=== PATIENT | female | born 1950 | race Caucasian/White ===

== ENCOUNTER → 2020-02-12 13:56 | Outpatient (CLI) | payer MEDICARE, OTHER, SELFPAY | PROVIDERS: Family Provider Family Medicine; PCP Family Medicine; Referring Provider Obstetrics & Gynecology; Visit Provider Obstetrics & Gynecology | DX: Z13.820 Encounter for screening for osteoporosis (principal); Z78.0 Asymptomatic menopausal state; E11.9 Type 2 diabetes mellitus without complications | CPT/HCPCS: 77080 ==

== ENCOUNTER → 2020-12-05 14:41 | Outpatient (CLI) | payer MEDICARE, OTHER, SELFPAY ==
[2020-12-05 17:34] LABS: BUN Creatinine Ratio 24.3 (6-22); Blood Urea Nitrogen 17 mg/dL (7-17); Calcium 10.4 mg/dL (8.4-10.2); Carbon Dioxide 26 mmol/L (22-32); Chloride 104 mmol/L (98-107); Estimated Glomerular Filt Rate > 60.0 mL/min (>60); Glucose 128 mg/dL (80-110); HEMOLYSIS < 15 (0-50); Potassium 4.7 mmol/L (3.4-5.1); Sodium 138 mmol/L (137-145)
== END ==
PROVIDERS: Family Provider Family Medicine; PCP Family Medicine; Referring Provider Internal Medicine Cardiovascular Disease; Visit Provider Internal Medicine Cardiovascular Disease
DX: Z01.812 Encounter for preprocedural laboratory examination (principal)
CPT/HCPCS: 36415; 80048

== ENCOUNTER → 2021-03-04 11:53 | Outpatient (CLI) | payer MEDICARE, OTHER, SELFPAY ==
[2021-03-04 20:34] LABS: NT-proBNP (BNP-Adult 18+) 34 pg/mL (<125)
== END ==
PROVIDERS: Family Provider Family Medicine; PCP Family Medicine; Referring Provider Internal Medicine Cardiovascular Disease; Visit Provider Internal Medicine Cardiovascular Disease
DX: R06.00 Dyspnea, unspecified (principal)
CPT/HCPCS: 83880

== ENCOUNTER → 2021-03-13 09:13 | Outpatient (CLI) | payer MEDICARE, OTHER, SELFPAY ==
--- NOTE | 2021-03-13 | DI.ECHO.S_ITS ---
[facility] +---------+ [facility] +---------+ : : [address] : [place] : : : : [id number] : : : : Phone: [phone] Echocardiogram Report + + :Name: NIKUNJ SKY Study Date: 03/13/2021 Height: 62 in : :[facility] ReadingLocation: Weight: 150 lb : : Gender: Female BSA: 1.7 m2 : :: 1950 Age: 70 yrs BP: 148/85 mmHg: :Reason For Study: DYSPNEA : :Ordering Physician: MALINDA BAEZPerformed By: Mary Alice Wagner : :Referring: MALINDA BAEZ : + + Interpretation Summary The ejection fraction is estimated to be 65-70%. Diastolic parameters suggest probable normal left ventricular diastolic function and normal filling pressures. The right ventricle is normal in size and function. No significant valvular abnormalities. Normal PASP. Procedure: A two-dimensional transthoracic echocardiogram with color flow and Doppler was performed. The study quality was technically adequate. There is no prior echocardiogram noted for this patient. The patient was in sinus bradycardia with heart rates between 56-62 bpm during the exam. Left Ventricle: The left ventricle is normal in size and wall thickness. The ejection fraction is estimated to be 65-70%. Diastolic parameters suggest probable normal left ventricular diastolic function and normal filling pressures. Right Ventricle: The right ventricle is normal in size and function. Atria: Both atria are normal in size. There is no Doppler evidence for an interatrial shunt. Mitral Valve: The mitral valve leaflets appear borderline thickened, but open well. There is mild mitral annular calcification. There is no mitral regurgitation noted. Aortic Valve: The aortic valve opens well. There is no aortic valve stenosis. No aortic regurgitation is present. Tricuspid Valve: The tricuspid valve is normal in structure and function. There is trace tricuspid regurgitation. The right ventricular systolic pressure is estimated to be at least 26 mmHg based on an estimated right atrial pressure of 3 mm Hg. Pulmonic Valve: The pulmonic valve is not well visualized. There is no pulmonic valvular regurgitation. Great Vessels: The aortic root is normal size. The ascending aorta could not be visualized. The IVC is of normal diameter and collapses greater than 50% with a sniff. This suggests a low right atrial pressure of 3 mm Hg. Pericardium/ Pleura There is no pericardial effusion. There is no pleural effusion. MMode/2D Measurements & Calculations LVIDd: 4.5 cm LVOT diam: 2.1 cm LVIDs: 2.8 cm Ao root diam: 2.9 cm FS: 37.5 % Ao Arch Diam (Prox Trans): 2.6 cm IVSd: 0.81 cm LVPWd: 0.80 cm LV shearer. diameter/BSA (cm/m^2): 2.6 LV sys. diameter/BSA (cm/m^2): 1.7 LA A2 area: 17.5 cm2 RA long axis: 4.3 cm LA A4 area: 14.3 cm2 RA area: 12.3 cm2 LA length (vol): 4.7 cm RA vol: 29.8 ml LA vol: 45.5 ml RA : 17.6 ml/m2 LA vol index: 26.9 ml/m2 IVC diam: 1.3 cm RVD1 (basal): 3.0 cm TAPSE: 2.0 cm Doppler Measurements & Calculations Ao V2 max: 166.1 cm/sec LVOT Max Sheng: 101.7 cm/sec Ao V2 mean: 99.5 cm/sec LV V1 max P.1 mmHg Ao max P.0 mmHg LV V1 VTI: 24.2 cm Ao mean P.8 mmHg YANNICK(I,D): 2.5 cm2 Ao V2 VTI: 34.1 cm YANNICK(V,D): 2.1 cm2 sev ratio: 0.71 YANNICK indexed to BSA (cm^2/m^2): 1.5 MV E max sheng: 65.9 cm/sec TR max sheng: 238.6 cm/sec MV A max sheng: 65.4 cm/sec TR max P.8 mmHg MV E/A: 1.0 PA V2 max: 85.4 cm/sec Med Peak E' Sheng: 7.6 cm/sec PA V2 mean: 60.1 cm/sec E/E' med: 8.6 PA mean P.6 mmHg Lat Peak E' Sheng: 9.8 cm/sec PA pr(Accel): 36.2 mmHg E/E' lat: 6.7 E/e' average: 7.7 MV dec time: 0.35 sec SV(LVOT): 83.6 ml Reading Physician:10:56 AM
== END ==
PROVIDERS: Family Provider Family Medicine; PCP Family Medicine; Referring Provider Internal Medicine Cardiovascular Disease; Visit Provider Internal Medicine Cardiovascular Disease
DX: R06.00 Dyspnea, unspecified (principal)
CPT/HCPCS: 93306

== ENCOUNTER → 2021-04-01 08:46 | Outpatient (CLI) | payer MEDICARE, OTHER, SELFPAY ==
[2021-04-01 19:38] LABS: Add Manual Diff / Slide Review NO; Basophils Absolute Auto 100 /uL (0-100); Eosinophils Absolute Auto 200 /uL (0-450); Eosinophils Percent Auto 3.1 % (2-4); Hematocrit 41.8 % (36-46); Hemoglobin 14.1 g/dL (12.0-16.0); Lymphocytes Absolute Auto 1800 /uL (1100-4500); Lymphocytes Percent Auto 28.2 % (25-40); Mean Corpuscular HGB Conc 33.7 % (30-36); Mean Corpuscular Hemoglobin 30.7 PG (26-34); Mean Corpuscular Volume 91.1 fL (80-100); Monocytes Absolute Auto 600 /uL (0-900); Monocytes Percent Auto 9.5 % (3-14); Neutrophils Absolute Auto 3800 /uL (1500-7000); Neutrophils Percent Auto 58.2 % (50-75); Platelet Count 230 X10^3/uL (150-400); Red Blood Cell Count 4.59 X10^6/uL (4.0-5.2); Red Cell Distribution Width 12.2 % (11.6-14.8); White Blood Cell Count 6.5 X10^3/uL (4.5-11.0)
[2021-04-01 19:57] LABS: Hemoglobin A1C% w Est Avg Glu 6.3 % (4.0-6.0)
[2021-04-01 20:05] LABS: Alanine Aminotransferase 19 IU/L (<35); Albumin 4.5 g/dL (3.5-5.0); Albumin Globulin Ratio 1.5 (1.0-2.8); Alkaline Phosphatase 63 U/L (38-126); Aspartate Aminotransferase 29 IU/L (14-36); BUN Creatinine Ratio 23.7 (6-22); Bilirubin Total 0.4 mg/dL (0.2-1.3); Blood Urea Nitrogen 14 mg/dL (7-17); Calcium 10.1 mg/dL (8.4-10.2); Carbon Dioxide 24 mmol/L (22-32); Chloride 105 mmol/L (98-107); Cholesterol 175 mg/dL (140-199); Estimated Glomerular Filt Rate > 60.0 mL/min (>60); Glucose 123 mg/dL (80-110); HDL Cholesterol 67 mg/dL (40-60); HEMOLYSIS < 15 (0-50); LDL Cholesterol Calculated 90 mg/dL (<100); Potassium 4.3 mmol/L (3.4-5.1); Sodium 138 mmol/L (137-145); Total Protein 7.5 g/dL (6.3-8.2); Triglycerides 89 mg/dL (35-150)
[2021-04-01 20:25] LABS: TSH w/ Reflex to FT4 0.92 uIU/mL (0.47-4.68)
== END ==
PROVIDERS: Family Provider Family Medicine; PCP Family Medicine; Visit Provider Family Medicine
DX: N39.3 Stress incontinence (female) (male) (principal); I10 Essential (primary) hypertension; G47.9 Sleep disorder, unspecified; E11.9 Type 2 diabetes mellitus without complications; G47.00 Insomnia, unspecified; R05 Cough
CPT/HCPCS: 80053; 80061; 83036; 84443; 85025

== ENCOUNTER → 2021-07-07 11:24 | Outpatient (CLI) | payer MEDICARE, OTHER, SELFPAY ==
[2021-07-07 14:14] LABS: COVID19 -Nasal RAPID Negative (Negative)
== END ==
PROVIDERS: Family Provider Family Medicine; PCP Family Medicine; Referring Provider Nurse Practitioner Family; Visit Provider Nurse Practitioner Family
DX: Z20.822 Contact with and (suspected) exposure to COVID-19 (principal)
CPT/HCPCS: 87635; C9803

== ENCOUNTER 2021-07-09 09:35 | Day surgery (SDC) | payer MEDICARE, OTHER, SELFPAY ==
[2021-07-09] VITALS (7 sets, daily range): BP systolic 123–146; BP diastolic 64–82; PULSE 68–100; RESP 12–17; TEMP 36.3–36.9; O2SAT 94–99; BMI 27.4
--- NOTE | 2021-07-09 09:39 | P.HP_ITS ---
History of Present Illness History of Present Illness Date Patient Seen: 07/09/21 Chief complaint: KSC Narrative: Personal and family history of colon polyps Patient History Medical History Asthma (1973) Basal cell carcinoma Chicken pox Chronic cough CTS (carpal tunnel syndrome) Diabetes mellitus (2001) Fibroids (1991) Fibromyalgia Foot pain Hayfever Hepatitis C Measles Mumps Neuroendocrine carcinoma Osteoarthritis (~1989) Preventative health care Surgical History (Updated 07/20/18 @ 14:24 by Kavita Gonsales) Anesthesia History of carpal tunnel repair (~1984) History of cystoscopy (07/31/16) History of hand surgery (09/2002) History of hand surgery (~2012) History of left knee surgery (07/28/12) History of right knee surgery (05/03/12) History of shoulder surgery (10/1992) History of sinus surgery (11/1991) History of stress incontinence procedure using tension free vaginal tape (11/20/16) History of stress incontinence procedure using tension free vaginal tape (01/29/17) History of third molar tooth extraction (1981) History of toe surgery (2004) History of tonsillectomy (1956) Status post excision of lipoma (07/29/10) Status post knee surgery (01/1992) Status post laparoscopic cholecystectomy (08/1992) Status post laparoscopic supracervical hysterectomy (2005) Status post myomectomy (~05/1991) Status post myomectomy Status post right foot surgery Family & Social History Family History (Updated 07/20/18 @ 14:25 by Kavita Gonsales) Brother Age: 68 Essential hypertension High cholesterol Mother Diabetes mellitus Heart disease Essential hypertension High cholesterol Mental health problem Grandfather Diabetes mellitus Heart disease High cholesterol Father Cancer Grandfather No problems noted. Grandmother No problems noted. Grandmother No problems noted. Tobacco & Substance use: Smoking Status Never smoker Meds Home Medications and Allergies Home Medications Medication Instructions Recorded Confirmed Type ESTRADIOL (Estrace) 0.25 mg PO QDAY #0 07/28/10 04/25/21 History ascorbic acid (vitamin C) 500 mg 500 mg PO BID #0 06/29/16 04/25/21 History tablet cholecalciferol (vitamin D3) 25 1,000 iu PO QDAY #0 06/29/16 04/25/21 History mcg (1,000 unit) tablet (Vitamin D3) folic acid 800 mcg tablet 0.8 mg PO QDAY #0 06/29/16 04/25/21 History lutein 20 mg capsule 20 mg PO #0 06/29/16 02/06/21 History magnesium 200 mg tablet 200 mg PO #0 06/29/16 02/06/21 History metformin 1,000 mg tablet 1,000 mg PO BIDCC #0 11/20/16 02/06/21 History ALBUTEROL SULFATE (Ventolin / 0 puff INHALATION PRN #0 12/13/17 04/25/21 History Proventil) guaifenesin 400 mg tablet 400 mg PO BID PRN tab 12/15/17 04/25/21 History olopatadine 0.2 % eye drops OPHTHALMIC (EYE) BID ml 12/15/17 02/06/21 History (Pataday) estradiol (Estring) See Rx Instructions .ROUTE 10/21/20 04/25/21 Rx .COMPLEX #1 ring aspirin 81 mg tablet,delayed 81 mg PO DAILY 02/06/21 04/25/21 History release (Adult Aspirin Regimen) blood sugar diagnostic (OneTouch 02/06/21 04/25/21 History Verio test strips) [facility] 04/25/21 History Verio Meter) fluticasone propionate 230 2 puff INHALATION BID 02/06/21 04/25/21 History mcg-salmeterol 21 mcg/actuation HFA inhaler (Advair HFA) lifitegrast 5 % eye drops in a drp EYE-BOTH BID ea 02/06/21 02/06/21 History dropperette (Xiidra) tobramycin 0.3 %-dexamethasone 0.1 drp EYE-BOTH .as needed ml 02/06/21 02/06/21 History % eye drops,suspension (TobraDex) beclomethasone dipropionate 42 mcg INTRANASAL 04/25/21 04/25/21 History mcg/actuation nasal spray diazepam 5 mg tablet 7.5 mg PO BEDTIME PRN #145 tab 04/25/21 04/25/21 Rx dulaglutide 1.5 mg/0.5 mL 1.5 mg SUBCUT QWEEK 04/25/21 04/25/21 History subcutaneous pen injector (Trulicity) glimepiride 1 mg tablet 1 mg PO BID tab 04/25/21 04/25/21 History losartan 25 mg tablet (Cozaar) 25 mg PO DAILY 04/25/21 04/25/21 History pravastatin 40 mg tablet 40 mg PO DAILY 04/25/21 04/25/21 History vortioxetine 20 mg tablet 20 mg PO DAILY 04/25/21 History (Trintellix) Allergies Allergy/AdvReac Type Severity Reaction Status Date / Time losartan [From Cozaar] Allergy Severe chest, Verified 06/06/21 15:31 heart, and head tightness codeine [CODEINE] Allergy Unknown Unverified 07/25/20 11:01 sulfacetamide [SULFACETAMIDE] Allergy Unknown Unverified 07/25/20 11:01 Exam Narrative Exam Narrative: Oropharynx free of lesions Chest clear to auscultation percussion Cardiac exam reveals no S3 or murmur Assessment & Plan Assessment & Plan narrative: Family and personal history of colon polyps. Need for follow-up colonoscopy. Risks, benefits, alternatives have been explained. Time Spent With Patient Critical Care time: I spent a total of [] minutes of critical care time on this patient's care today; this time is exclusive of procedural time.
--- NOTE | 2021-07-09 09:41 | PM.OP.COLON ---
Operative Date/Time/Diagnoses Date of procedure: 07/09/21 Pre-op diagnosis: See indication and findings Procedure & Clinicians Study performed: Colonoscopy Indications: Personal and family history of colon polyps Procedure Notes Procedure in detail: After informed consent was obtained the patient was placed in left lateral decubitus position. The video colonoscope was introduced the rectum slowly advanced cecum. On slow withdrawal mucosa was carefully examined. Preparation was good. The scope was removed. The patient tolerated procedure well. Blood loss none Complications none Sedation mac Findings 1. Normal colonoscopy to cecum Kanwal will need follow-up colonoscopy 7 years negative colonoscopy today.
[2021-07-09] MEDS: SODIUM CHLORIDE 0.9% 1,000 ML 84 ML IV (10:11)
--- NOTE | 2021-07-09 10:42 | SUR.PHASEI ---
Pt received to PACU after colonoscopy with sedation. Report received from MARCELLA Sullivan and GOLDIE Romo.
== END 2021-07-09 11:26 | disposition home or self-care (01) ==
PROVIDERS: Family Provider Family Medicine; PCP Family Medicine; Referring Provider Internal Medicine Gastroenterology; Visit Provider Internal Medicine Gastroenterology
PROC: 0DJD8ZZ Inspection of Lower Intestinal Tract, Via Natural or Artificial Opening Endoscopic (ICD-10-PCS; CPT 45378; principal; 2021-07-09 10:30)
DX: Z12.11 Encounter for screening for malignant neoplasm of colon (principal); Z86.010 Personal history of colon polyps; Z83.71 Family history of colonic polyps; E11.9 Type 2 diabetes mellitus without complications; Z79.84 Long term (current) use of oral hypoglycemic drugs
CPT/HCPCS: G0105; J2704

== ENCOUNTER → 2021-07-28 10:42 | Outpatient (CLI) | payer MEDICARE, OTHER, SELFPAY ==
[2021-07-28 11:55] LABS: Cholesterol 166 mg/dL (140-199); HDL Cholesterol 65 mg/dL (40-60); LDL Cholesterol Calculated 84 mg/dL (<100); Triglycerides 87 mg/dL (35-150)
== END ==
PROVIDERS: Family Provider Family Medicine; PCP Family Medicine; Referring Provider Internal Medicine Cardiovascular Disease; Visit Provider Internal Medicine Cardiovascular Disease
DX: I25.118 Atherosclerotic heart disease of native coronary artery with other forms of angina pectoris (principal)
CPT/HCPCS: 36415; 80061

== ENCOUNTER → 2021-12-22 08:30 | Outpatient (CLI) | payer MEDICARE, OTHER, SELFPAY ==
[2021-12-22 19:22] LABS: Hemoglobin A1C% w Est Avg Glu 6.6 % (4.0-6.0)
[2021-12-22 19:31] LABS: Alanine Aminotransferase 20 IU/L (<35); Albumin 4.5 g/dL (3.5-5.0); Albumin Globulin Ratio 1.6 (1.0-2.8); Alkaline Phosphatase 57 U/L (38-126); Aspartate Aminotransferase 32 IU/L (14-36); BUN Creatinine Ratio 24.3 (6-22); Bilirubin Total 0.5 mg/dL (0.2-1.3); Blood Urea Nitrogen 17 mg/dL (7-17); Calcium 9.5 mg/dL (8.4-10.2); Carbon Dioxide 26 mmol/L (22-32); Chloride 103 mmol/L (98-107); Cholesterol 152 mg/dL (140-199); Estimated Glomerular Filt Rate > 60 mL/min (>60); Globulin 2.9 g/dL (1.7-4.1); Glucose 106 mg/dL (80-110); HDL Cholesterol 56 mg/dL (40-60); HEMOLYSIS < 15 (0-50); LDL Cholesterol Calculated 78 mg/dL (<100); Potassium 4.3 mmol/L (3.4-5.1); Sodium 139 mmol/L (137-145); Total Protein 7.4 g/dL (6.3-8.2); Triglycerides 90 mg/dL (35-150)
== END ==
PROVIDERS: Family Provider Family Medicine; PCP Family Medicine; Visit Provider Family Medicine
DX: E11.9 Type 2 diabetes mellitus without complications (principal); I10 Essential (primary) hypertension; C7A.8 Other malignant neuroendocrine tumors
CPT/HCPCS: 80053; 80061; 83036

== ENCOUNTER → 2022-05-15 08:01 | Outpatient (CLI) | payer MEDICARE, OTHER, SELFPAY ==
--- NOTE | 2022-05-15 08:05 | DI.RAD.S_ITS ---
PROCEDURE: FL BARIUM SWALLOW W SPEECH INDICATIONS: CHRONIC COUGH/DYSPHAGIA/HOARSENESS COMPARISON: TECHNIQUE: Examination was conducted in conjunction with speech pathology per standard protocol. In the lateral projection, filming was performed of the patient swallowing. AP projection filming may also be performed with patient swallowing. COMPARISON: None. FINDINGS: Function: The oral preparatory phase appears normal, with proper containment. The subsequent oral propulsive phase, pharyngeal phase, and esophageal phase of swallowing also appear normal with all proffered substances. No laryngotracheal penetration or aspiration. No pathologic vallecular pooling. Morphology: No cricopharyngeal bar is identified. No cervical esophageal webs. No Zenker's diverticulum. No strictures. IMPRESSION: Normal barium swallow with speech pathology exam. Dictated by: Katie Mcmullen M.D. on 05/15/2022 at 9:05 Approved by: Katie Mcmullen M.D. on 05/15/2022 at 9:06
== END ==
PROVIDERS: Family Provider Family Medicine; PCP Family Medicine; Referring Provider Otolaryngology; Visit Provider Otolaryngology
DX: R05.3 Chronic cough (principal); R13.10 Dysphagia, unspecified; R49.0 Dysphonia
CPT/HCPCS: 74230; 92611

== ENCOUNTER → 2022-07-16 08:15 | Outpatient (CLI) | payer MEDICARE, OTHER, SELFPAY ==
[2022-07-16 10:16] LABS: Hemoglobin A1C% w Est Avg Glu 6.4 % (4.0-6.0)
[2022-07-16 10:55] LABS: Microalbumin Urine Random < 0.6 mg/dL (0-1.6)
[2022-07-16 11:19] LABS: Alanine Aminotransferase 20 IU/L (<35); Albumin 4.3 g/dL (3.5-5.0); Albumin Globulin Ratio 1.4 (1.0-2.8); Alkaline Phosphatase 60 U/L (38-126); Aspartate Aminotransferase 24 IU/L (14-36); BUN Creatinine Ratio 21.3 (6-22); Bilirubin Total 0.1 mg/dL (0.2-1.3); Blood Urea Nitrogen 13 mg/dL (7-17); Calcium 9.5 mg/dL (8.4-10.2); Carbon Dioxide 27 mmol/L (22-32); Chloride 101 mmol/L (98-107); Estimated Glomerular Filt Rate > 60 mL/min (>60); Glucose 100 mg/dL (80-110); HEMOLYSIS < 15 (0-50); Potassium 4.3 mmol/L (3.4-5.1); Sodium 137 mmol/L (137-145); Total Protein 7.3 g/dL (6.3-8.2)
== END ==
PROVIDERS: Family Provider Family Medicine; PCP Family Medicine; Referring Provider Family Medicine; Visit Provider Family Medicine
DX: E11.9 Type 2 diabetes mellitus without complications (principal); E78.2 Mixed hyperlipidemia; I10 Essential (primary) hypertension
CPT/HCPCS: 36415; 80053; 82043; 82570; 83036

== ENCOUNTER → 2022-11-24 10:54 | Outpatient (CLI) | payer MEDICARE, OTHER, SELFPAY ==
--- NOTE | 2022-11-24 10:57 | DI.RAD.S_ITS ---
PROCEDURE: XR SKULL<4V INDICATIONS: Assess skull anomaly near occipital TECHNIQUE: 3 view(s) of the skull acquired. COMPARISON: None. FINDINGS: Bones: No fractures. No suspicious bony lesions. Visualized sinuses appear clear. 3.4 x 2.0 cm bony excrescence noted to the right of midline occipital bone, corresponding with palpable abnormality Soft tissues: No soft tissue calcifications. No suspicious soft tissue densities. 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 Consider follow-up CT evaluation Approved by: Sy Sharma M.D. on 11/24/2022 at 17:13
== END ==
PROVIDERS: Family Provider Family Medicine; PCP Family Medicine; Referring Provider Family Medicine; Visit Provider Family Medicine
DX: R22.0 Localized swelling, mass and lump, head (principal); T14.90XS Injury, unspecified, sequela
CPT/HCPCS: 70250

== ENCOUNTER → 2022-11-25 09:15 | Outpatient (CLI) | payer MEDICARE, OTHER, SELFPAY ==
[2022-11-25 10:40] LABS: BUN Creatinine Ratio 22.6 (6-22); Blood Urea Nitrogen 14 mg/dL (7-17); Calcium 9.3 mg/dL (8.4-10.2); Carbon Dioxide 27 mmol/L (22-32); Chloride 102 mmol/L (98-107); Cholesterol 162 mg/dL (140-199); Estimated Glomerular Filt Rate > 60 mL/min (>60); Glucose 153 mg/dL (80-110); HDL Cholesterol 54 mg/dL (40-60); HEMOLYSIS < 15 (0-50); LDL Cholesterol Calculated 92 mg/dL (<100); Potassium 3.9 mmol/L (3.4-5.1); Sodium 137 mmol/L (137-145); Triglycerides 81 mg/dL (35-150)
[2022-11-25 11:04] LABS: Creatinine Urine Random 80.4 mg/dL
[2022-11-25 11:11] LABS: Microalbumi Creatinin Ratio Ur 39.8 ug/mg CR (<30); Microalbumin Urine Random 3.2 mg/dL (0-1.6)
[2022-11-26 09:48] LABS: x Labcorp Estim. Avg Glu (eAG) 146 mg/dL (.); x Labcorp Hemoglobin A1c 6.7 % (4.8-5.6)
== END ==
PROVIDERS: Family Provider Family Medicine; PCP Family Medicine; Referring Provider Nurse Practitioner; Visit Provider Nurse Practitioner
DX: I10 Essential (primary) hypertension (principal); E11.9 Type 2 diabetes mellitus without complications; I25.118 Atherosclerotic heart disease of native coronary artery with other forms of angina pectoris; F41.9 Anxiety disorder, unspecified; F43.21 Adjustment disorder with depressed mood; F43.9 Reaction to severe stress, unspecified
CPT/HCPCS: 36415; 80048; 80061; 82043; 82570; 83036; 90837

== ENCOUNTER → 2023-01-05 12:29 | Outpatient (CLI) | payer MEDICARE, OTHER, SELFPAY ==
[2023-01-05 14:03] LABS: Alanine Aminotransferase 28 IU/L (<35); Albumin 4.2 g/dL (3.5-5.0); Albumin Globulin Ratio 1.5 (1.0-2.8); Alkaline Phosphatase 59 U/L (38-126); Aspartate Aminotransferase 31 IU/L (14-36); BUN Creatinine Ratio 24.1 (6-22); Bilirubin Total 0.2 mg/dL (0.2-1.3); Blood Urea Nitrogen 14 mg/dL (7-17); Calcium 9.8 mg/dL (8.4-10.2); Carbon Dioxide 27 mmol/L (22-32); Chloride 103 mmol/L (98-107); Cholesterol 157 mg/dL (140-199); Estimated Glomerular Filt Rate > 60 mL/min (>60); Globulin 2.8 g/dL (1.7-4.1); Glucose 92 mg/dL (80-110); HDL Cholesterol 57 mg/dL (40-60); HEMOLYSIS < 15 (0-50); LDL Cholesterol Calculated 81 mg/dL (<100); Potassium 4.8 mmol/L (3.4-5.1); Sodium 135 mmol/L (137-145); Triglycerides 97 mg/dL (35-150)
[2023-01-06 06:19] LABS: x Labcorp Estim. Avg Glu (eAG) 148 mg/dL (.); x Labcorp Hemoglobin A1c 6.8 % (4.8-5.6)
== END ==
PROVIDERS: Family Provider Family Medicine; PCP Family Medicine; Referring Provider Family Medicine; Visit Provider Family Medicine
DX: F41.9 Anxiety disorder, unspecified (principal); F43.21 Adjustment disorder with depressed mood; F43.9 Reaction to severe stress, unspecified; E11.9 Type 2 diabetes mellitus without complications; E78.5 Hyperlipidemia, unspecified; I10 Essential (primary) hypertension
CPT/HCPCS: 36415; 80053; 80061; 83036; 90837

== ENCOUNTER → 2023-01-06 11:55 | Outpatient (CLI) | payer MEDICARE, OTHER, SELFPAY ==
--- NOTE | 2023-01-06 11:56 | DI.CT.S_ITS ---
PROCEDURE: CT HEAD/BRAIN WO/W CON INDICATIONS: Occipital calvarial bony excrescence may reflect osteoma TECHNIQUE: 4.5 mm thick angled axial sections acquired from the foramen magnum to the vertex before and after the administration of intravenous contrast, with coronal and sagittal reformats. For radiation dose reduction, the following was used: automated exposure control, adjustment of mA and/or kV according to patient size. COMPARISON: None. FINDINGS: Image quality: Excellent. CSF Spaces: Basal cisterns are patent. No extra-axial fluid collections. Ventricles are normal in size and shape. Brain: No midline shift. No intracranial bleeds or masses. No abnormal intracranial enhancement. Elam-white interface appears normal. Age-related volume loss and mild small vessel ischemic change Bilateral cavernous carotid calcifications. Skull and face: Calvarium and visualized facial bones appear intact, without suspicious lesions. Benign sclerotic lesion off the outer table of the skull in the occipital region consistent with osteoma. Sinuses: Visualized sinuses and mastoids are clear. IMPRESSION: 1. 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 2. No acute intracranial process. Dictated by: Eulogio Arellano M.D. on 01/06/2023 at 12:25 Approved by: Eulogio Arellano M.D. on 01/06/2023 at 12:29
== END ==
PROVIDERS: Family Provider Family Medicine; PCP Family Medicine; Referring Provider Family Medicine; Visit Provider Family Medicine
DX: D16.4 Benign neoplasm of bones of skull and face (principal)
CPT/HCPCS: 70470; Q9967

== ENCOUNTER → 2023-06-03 08:24 | Outpatient (CLI) | payer MEDICARE, OTHER, SELFPAY ==
[2023-06-03 09:50] LABS: Hemoglobin A1C% w Est Avg Glu 6.9 % (4.0-6.0)
[2023-06-03 09:53] LABS: Alanine Aminotransferase 22 IU/L (<35); Albumin 4.5 g/dL (3.5-5.0); Albumin Globulin Ratio 1.5 (1.0-2.8); Alkaline Phosphatase 52 U/L (38-126); Aspartate Aminotransferase 29 IU/L (14-36); BUN Creatinine Ratio 19.7 (6-22); Bilirubin Total 0.2 mg/dL (0.2-1.3); Blood Urea Nitrogen 13 mg/dL (7-17); Calcium 10.1 mg/dL (8.4-10.2); Carbon Dioxide 25 mmol/L (22-32); Chloride 101 mmol/L (98-107); Estimated Glomerular Filt Rate > 60 mL/min (>60); Globulin 3.1 g/dL (1.7-4.1); Glucose 123 mg/dL (80-110); HEMOLYSIS < 15 (0-50); Potassium 4.2 mmol/L (3.4-5.1); Sodium 134 mmol/L (137-145); Total Protein 7.6 g/dL (6.3-8.2)
[2023-06-03 10:22] LABS: TSH w/ Reflex to FT4 0.88 uIU/mL (0.47-4.68)
== END ==
PROVIDERS: Family Provider Family Medicine; PCP Family Medicine; Referring Provider Family Medicine; Visit Provider Family Medicine
DX: E11.9 Type 2 diabetes mellitus without complications (principal); I27.21 Secondary pulmonary arterial hypertension; C7A.8 Other malignant neuroendocrine tumors
CPT/HCPCS: 36415; 80053; 83036; 84443

== ENCOUNTER → 2023-07-23 14:35 | Outpatient (CLI) | payer MEDICARE, OTHER, SELFPAY ==
--- NOTE | 2023-07-23 14:36 | DI.RAD.S_ITS ---
PROCEDURE: XR CHEST 2V INDICATIONS: chronic cough TECHNIQUE: 2 views of the chest were acquired. COMPARISON: [facility] ([place]), CR, XR CHEST 2V, 08/11/2022, 14:30. FINDINGS: Surgical changes and devices: Cholecystectomy clips. Lungs and pleura: Lungs are clear. No pleural effusions or pneumothorax. Mediastinum: Mediastinal contours are normal. Heart size is normal. Bones and chest wall: No suspicious bony abnormalities. Soft tissues appear unremarkable. Mild degenerative changes of the spine. IMPRESSION: No acute cardiopulmonary process. Dictated by: Thuy Reyna M.D. on 07/23/2023 at 20:30 Approved by: Tuhy Reyna M.D. on 07/23/2023 at 20:33
== END ==
PROVIDERS: Family Provider Family Medicine; PCP Family Medicine; Referring Provider Family Medicine; Visit Provider Family Medicine
DX: R05.9 Cough, unspecified (principal)
CPT/HCPCS: 71046

== ENCOUNTER → 2023-11-09 11:48 | Outpatient (CLI) | payer MEDICARE, OTHER, SELFPAY ==
[2023-11-09 22:15] LABS: Hemoglobin A1C% w Est Avg Glu 5.8 % (4.0-6.0)
== END ==
PROVIDERS: Family Provider Family Medicine; PCP Family Medicine; Visit Provider Nurse Practitioner Family
DX: E11.9 Type 2 diabetes mellitus without complications (principal)
CPT/HCPCS: 83036

== ENCOUNTER → 2023-11-18 08:41 | Outpatient (CLI) | payer MEDICARE, OTHER, SELFPAY ==
[2023-11-18 10:11] LABS: Alanine Aminotransferase 20 IU/L (<35); Albumin 4.7 g/dL (3.5-5.0); Albumin Globulin Ratio 1.7 (1.0-2.8); Alkaline Phosphatase 52 U/L (38-126); Aspartate Aminotransferase 28 IU/L (14-36); Bilirubin Total 0.4 mg/dL (0.2-1.3); Blood Urea Nitrogen 9 mg/dL (7-17); Carbon Dioxide 28 mmol/L (22-32); Chloride 100 mmol/L (98-107); Cholesterol 144 mg/dL (140-199); Estimated Glomerular Filt Rate > 60 mL/min (>60); Globulin 2.7 g/dL (1.7-4.1); Glucose 104 mg/dL (80-110); HDL Cholesterol 65 mg/dL (40-60); HEMOLYSIS < 15 (0-50); LDL Cholesterol Calculated 65 mg/dL (<100); Potassium 4.2 mmol/L (3.4-5.1); Sodium 132 mmol/L (137-145); Total Protein 7.4 g/dL (6.3-8.2); Triglycerides 68 mg/dL (35-150)
== END ==
PROVIDERS: Family Provider Family Medicine; PCP Family Medicine; Referring Provider Family Medicine; Visit Provider Family Medicine
DX: I27.21 Secondary pulmonary arterial hypertension (principal); E78.2 Mixed hyperlipidemia
CPT/HCPCS: 36415; 80053; 80061

== ENCOUNTER → 2024-06-01 07:23 | Outpatient (CLI) | payer MEDICARE, OTHER, SELFPAY ==
[2024-06-01 08:15] LABS: Add Manual Diff / Slide Review NO; Basophils Absolute Auto 0 /uL (0-100); Basophils Percent Auto 1.1 % (0-2); Eosinophils Absolute Auto 200 /uL (0-450); Eosinophils Percent Auto 4.2 % (2-4); Lymphocytes Absolute Auto 1400 /uL (1100-4500); Lymphocytes Percent Auto 37.2 % (25-40); Mean Corpuscular HGB Conc 34.2 % (30-36); Mean Corpuscular Hemoglobin 31.8 PG (26-34); Mean Corpuscular Volume 92.9 fL (80-100); Monocytes Absolute Auto 400 /uL (0-900); Monocytes Percent Auto 10.8 % (3-14); Neutrophils Absolute Auto 1800 /uL (1500-7000); Neutrophils Percent Auto 46.7 % (50-75); Platelet Count 220 X10^3/uL (150-400); Red Blood Cell Count 4.09 X10^6/uL (4.0-5.2); Red Cell Distribution Width 12.2 % (11.6-14.8); White Blood Cell Count 3.8 X10^3/uL (4.5-11.0)
[2024-06-01 08:42] LABS: Alanine Aminotransferase 18 IU/L (<35); Albumin 4.2 g/dL (3.5-5.0); Albumin Globulin Ratio 1.7 (1.0-2.8); Alkaline Phosphatase 61 U/L (38-126); Aspartate Aminotransferase 28 IU/L (14-36); BUN Creatinine Ratio 21.1 (6-22); Bilirubin Total 0.4 mg/dL (0.2-1.3); Blood Urea Nitrogen 12 mg/dL (7-17); Calcium 9.8 mg/dL (8.4-10.2); Carbon Dioxide 27 mmol/L (22-32); Chloride 104 mmol/L (98-107); Cholesterol 148 mg/dL (140-199); Estimated Glomerular Filt Rate > 60 mL/min (>60); Globulin 2.5 g/dL (1.7-4.1); Glucose 97 mg/dL (80-110); HDL Cholesterol 73 mg/dL (40-60); HEMOLYSIS < 15 (0-50); LDL Cholesterol Calculated 64 mg/dL (<100); Potassium 4.1 mmol/L (3.4-5.1); Sodium 137 mmol/L (137-145); Total Protein 6.7 g/dL (6.3-8.2); Triglycerides 57 mg/dL (35-150)
[2024-06-01 09:13] LABS: TSH w/ Reflex to FT4 0.61 uIU/mL (0.47-4.68)
[2024-06-02 12:14] LABS: Free T4, Direct Thyroxine 1.25 ng/dL (0.78-2.19)
== END ==
PROVIDERS: Family Provider Family Medicine; PCP Family Medicine; Referring Provider Family Medicine; Visit Provider Family Medicine
DX: E78.2 Mixed hyperlipidemia (principal); E11.9 Type 2 diabetes mellitus without complications; I10 Essential (primary) hypertension; F41.9 Anxiety disorder, unspecified; R53.83 Other fatigue; Z79.899 Other long term (current) drug therapy; C7A.8 Other malignant neuroendocrine tumors
CPT/HCPCS: 36415; 80053; 80061; 83036; 84439; 84443; 85025

== ENCOUNTER → 2024-09-18 08:18 | Outpatient (CLI) | payer MEDICARE, OTHER, SELFPAY ==
--- NOTE | 2024-09-18 08:20 | DI.RAD.S_ITS ---
PROCEDURE: XR DEXA AXIAL SKELETON INDICATIONS: screen for osteoporosis COMPARISON: [facility], [place], XR DEXA AXIAL SKELETON, 02/12/2020, 14:39. FINDINGS: Lumbar Spine: Bone mineral density 1.204 (previously 1.475) g/cm2, T score 1.5 (previously 2.3). Left Femoral Neck: Bone mineral density 0.880 (previously 1.077) g/cm2, T score 0.3 (previously 0.3) Left Hip: Bone mineral density 0.969 (previously 1.078) g/cm2, T score 0.2 (previously 0.6). Fracture Risk Calculation (when applicable): 10-year fracture risk of a major osteoporotic fracture 6.5 percent and of a hip fracture 0.5 percent. IMPRESSION: Normal---no evidence of osteoporosis or osteopenia. Recommend repeat DEXA as clinically indicated. Follow-up guidelines as follows: Osteoporosis: Consider a repeat DEXA and Vertebral Fracture Assessment (VFA) exam in 2 years or sooner if medically necessary, to reassess this patient's status. Osteopenia: Consider a repeat DEXA in 2-3 years to reassess this patient's status, or if there is a new clinical indication. Normal: Consider a repeat DEXA in 5 years or sooner, or if there is a new clinical indication. All treatment decisions require clinical judgment and consideration of individual patient factors, including patient preferences, comorbidities, previous drug use, risk factors not captured in the FRAX model (e.g., frailty, falls, vitamin D deficiency, increased bone turnover, interval significant decline in bone density ) and possible under- or over-estimation of fracture risk by FRAX. In addition, the NOF Guide recommends that FDA-approved medical therapies be considered in postmenopausal women and men age >= 50 years with a: * Hip or vertebral (clinical or morphometric) fracture * T-score of <=-2.5 at the spine or hip * Ten-year fracture probability by FRAX of >= 3% for hip fracture or >=20% for major osteoporotic fracture. Dictated by: Bin Martin M.D. on 09/18/2024 at 13:22 Approved by: Bin Martin M.D. on 09/18/2024 at 13:25
== END ==
PROVIDERS: Family Provider Family Medicine; PCP Family Medicine; Referring Provider Family Medicine; Visit Provider Family Medicine
DX: N95.9 Unspecified menopausal and perimenopausal disorder (principal)
CPT/HCPCS: 77080

== ENCOUNTER → 2024-09-29 13:57 | Outpatient (CLI) | payer MEDICARE, OTHER, SELFPAY ==
[2024-09-29 18:16] LABS: Alanine Aminotransferase 18 IU/L (<35); Albumin 4.4 g/dL (3.5-5.0); Albumin Globulin Ratio 1.7 (1.0-2.8); Alkaline Phosphatase 60 U/L (38-126); Aspartate Aminotransferase 31 IU/L (14-36); BUN Creatinine Ratio 22.2 (6-22); Bilirubin Total 0.1 mg/dL (0.2-1.3); Blood Urea Nitrogen 12 mg/dL (7-17); Calcium 9.6 mg/dL (8.4-10.2); Carbon Dioxide 26 mmol/L (22-32); Chloride 98 mmol/L (98-107); Estimated Glomerular Filt Rate > 60 mL/min (>60); Globulin 2.6 g/dL (1.7-4.1); Glucose 74 mg/dL (80-110); HEMOLYSIS < 15 (0-50); Potassium 4.3 mmol/L (3.4-5.1); Sodium 133 mmol/L (137-145)
[2024-09-29 18:18] LABS: Hemoglobin A1C% w Est Avg Glu 5.8 % (4.0-6.0)
[2024-09-29 18:32] LABS: Free T4, Direct Thyroxine 1.04 ng/dL (0.78-2.19)
[2024-09-29 18:46] LABS: Thyroid Stimulating Hormone 0.325 uIU/mL (0.47-4.68)
== END ==
PROVIDERS: Family Provider Family Medicine; PCP Family Medicine; Visit Provider Family Medicine
DX: E11.9 Type 2 diabetes mellitus without complications (principal); E78.2 Mixed hyperlipidemia; I10 Essential (primary) hypertension; F41.9 Anxiety disorder, unspecified
CPT/HCPCS: 80053; 83036; 84439; 84443

== ENCOUNTER → 2024-11-24 11:39 | Outpatient (CLI) | payer MEDICARE, OTHER, SELFPAY ==
--- NOTE | 2024-11-24 11:40 | DI.MG.S_ITS ---
MM screening mammo BI: 11/24/2024. BI-RADS: 0 CLINICAL: 73-year old female for bilateral screening mammogram. Tyrer-Cuzick lifetime risk of 3.4%. No personal or first-degree family history of breast cancer. The patient had a prior right breast biopsy. PRIOR EXAMS: 09/29/2023, 09/10/2022, 08/20/2021, 08/16/2020. MAMMOGRAPHY TECHNIQUE: 2D and 3D (tomosynthesis) digital mammographic views obtained, with additional images as needed for full coverage. Current study was also evaluated with a Computer Aided Detection (CAD) system. DENSITY C. The breasts are heterogeneously dense, which may obscure small masses. MAMMOGRAPHY FINDINGS Right: Upper Outer at 10:30, Anterior depth: Focal asymmetry needing additional imaging evaluation. Right: Biopsy marker present on the right. Left: No suspicious mass, asymmetry, microcalcification, or other abnormality seen. IMPRESSION: Right (Asymmetry): Upper Outer at 10:30, Anterior depth * Incomplete - focal asymmetry needing additional imaging evaluation. Left * No evidence of malignancy. RECOMMENDATIONS Right: Upper Outer at 10:30, Anterior depth * Further evaluation with diagnostic mammography and diagnostic ultrasound. Ultrasound to be performed only if needed. OVERALL ASSESSMENT CATEGORY BI-RADS-0: Incomplete - Need Additional Imaging Evaluation. ELECTRONICALLY SIGNED: Marvin Kimball M.D. on 11/24/2024 at 10:05:50 PM PT Interpreting Station ID: [id number]
== END ==
PROVIDERS: Family Provider Family Medicine; PCP Family Medicine; Referring Provider Obstetrics & Gynecology; Visit Provider Obstetrics & Gynecology
DX: Z12.31 Encounter for screening mammogram for malignant neoplasm of breast (principal); R92.333 Mammographic heterogeneous density, bilateral breasts; F43.10 Post-traumatic stress disorder, unspecified; F51.01 Primary insomnia
CPT/HCPCS: 77063; 77067; 99215

== ENCOUNTER → 2025-01-09 09:52 | Outpatient (CLI) | payer MEDICARE, OTHER, SELFPAY ==
--- NOTE | 2025-01-09 09:53 | DI.US.S_ITS ---
US breast RT limited, MM diagnostic mammo unilat RT: 01/09/2025 BI-RADS: 2 CLINICAL: 74-year old female for right diagnostic mammogram and right diagnostic breast ultrasound that is a recall from screening on 11/24/2024. Tyrer-Cuzick lifetime risk of 3.2%. No personal or first-degree family history of breast cancer. The patient had a prior right breast biopsy. PRIOR EXAMS: 11/24/2024, 09/29/2023, 09/10/2022. MAMMOGRAPHY TECHNIQUE: 2D and 3D (tomosynthesis) digital mammographic views obtained, with additional images as needed for full coverage. Current study was also evaluated with a Computer Aided Detection (CAD) system. ULTRASOUND TECHNIQUE TARGETED Right Breast Ultrasound: Real-time ultrasound exam was performed focused to area of clinical and/or imaging concern. Real-time roy scale and color doppler imaging of the area of clinical interest was performed with image documentation. DENSITY Right: C. The breasts are heterogeneously dense, which may obscure small masses. MAMMOGRAPHY FINDINGS Right: Upper Outer at 11:00, Far Anterior depth. Previous report: at 10:30: There is a new oval mass present. Right: There is a ([place]) biopsy marker present. There are no suspicious masses, calcifications, or other findings in the breast. ULTRASOUND FINDINGS Right: Upper Outer at 11:00, 3 cm from nipple, measuring 0.8 x 0.8 x 0.3 cm. Previous report: at 10:30: Correlating with findings on mammogram there is a normal-appearing lymph node showing posterior acoustic enhancement. Doppler shows no vascularity. IMPRESSION: Right * No evidence of malignancy with benign findings. RECOMMENDATIONS Bilateral * Annual screening mammography. OVERALL ASSESSMENT CATEGORY BI-RADS-2: Benign. The [employer] [place] [employer] recommends annual screening mammography beginning at age 40 for women with average risk of breast cancer. ELECTRONICALLY SIGNED: Marvin Kimball M.D. on 01/09/2025 at 11:23:24 AM PT Interpreting Station ID: [id number]
== END ==
LOC: MAMMO 09:53
PROVIDERS: PCP Family Medicine; Referring Provider Obstetrics & Gynecology; Visit Provider Obstetrics & Gynecology
DX: R92.8 Other abnormal and inconclusive findings on diagnostic imaging of breast (principal); R92.331 Mammographic heterogeneous density, right breast
CPT/HCPCS: 76642; 77065; G0279

== ENCOUNTER 2025-05-31 07:54 | Day surgery (SDC) | payer MEDICARE, OTHER, SELFPAY ==
[2025-05-16 15:03] VITALS: BMI 21.5
[2025-05-31 08:29] VITALS: BP 147/85; PULSE 102; RESP 18; TEMP 36.2; O2SAT 98
[2025-05-31] MEDS: LACTATED RINGERS 1,000 ML 84 ML IV (09:04)
--- NOTE | 2025-05-31 09:47 | P.OP.PRE_ITS ---
Pre-operative Note
--- NOTE | 2025-05-31 09:47 | PM.PREOP ---
Pre-operative Note Interval Note History & Physical reviewed/Exam performed by Physician: Yes Changes to H&P: No
[2025-05-31] MEDS: LIDOCAINE 1% W/EPI 10ML 10 ML INJ (10:10)
--- NOTE | 2025-05-31 10:33 | SUR.OPER ---
Supine on padded OR bed, head on pillow, arms secured on padded arm boards at <90 degrees abduction, legs uncrossed, safety belt at thigh, tape over blanket over lower legs.
[2025-05-31 10:51] VITALS: BP 107/68; PULSE 74; RESP 16; TEMP 36.4; O2SAT 100
[2025-05-31 10:55] VITALS: BP 115/59; PULSE 75; RESP 16; O2SAT 100
[2025-05-31 11:00] VITALS: BP 113/69; PULSE 76; RESP 16; O2SAT 98
[2025-05-31 11:05] VITALS: BP 120/70; PULSE 74; RESP 16; TEMP 36.4; O2SAT 98
[2025-05-31 11:15] VITALS: BP 112/74; PULSE 75; RESP 16; TEMP 36.2; O2SAT 99
--- NOTE | 2025-05-31 11:44 | P.OP_ITS ---
Operative Date/Time/Diagnoses
--- NOTE | 2025-05-31 11:44 | PM.OP.1 ---
Operative Date/Time/Diagnoses Date of procedure: 05/31/25 Time of procedure: 10:00 Pre-op diagnosis: RIGHT Small FInger Trigger Finger Post-op diagnosis: same Procedure & Clinicians Procedure: RIGHT Small Finger Trigger Finger Release Same procedure(s) as scheduled: Yes Surgeon: Miguelito Felipe Assisted?: Yes Flower Grader: Rajani Barney Anesthesia Type: MAC +/- and Local Operative Notes Findings: Triggering of the Right Small Finger Specimen(s): none sent Applied: none Estimated Blood Loss (mL): 5 Tourniquet time (min): 22 Procedure in detail: Fingers Released: Right small finger Preoperative diagnosis: Stenosing Tenosynovitis of the Above Digits Procedure performed: A1 Alyssa Release of the Above Digits Postoperative diagnosis: Same Primary Surgeon: Miguelito Felipe MD Secondary Surgeon: None Anesthesia: General EBL: 5 ml Tourniquet: 22 minutes @ 250 mmHg Indication For Surgery: Patient presented with triggering and pain of the affected digits. Conservative treatment did not improve symptoms to an acceptable level. The risks, benefits, and alternatives were discussed. Risks include pain, bleeding, infection, damage to nearby structures, tendon damage, nerve damage, blood vessel damage, wound healing complications, lack of symptom relief, need for further surgery, DVT, PE, stroke, and . Written consent was obtained. Operative Findings: Thickened A1 alyssa of the affected digits. Triggering resolved after A1 alyssa release. Procedure in Detail: The patient was met in the pre-operative hold area. Consent was verified and operative extremity was signed. The patient then met with anesthesia and was brought back to the operating room. The patient was placed supine on the operating table. Anesthetic was administered. Local anesthesia was injected. The extremity was then prepped and draped in the usual sterile fashion. A timeout was performed per protocol. All were in agreement and we proceeded. Local anesthesia was tested with a sharp adson pickup and found to be adequate. A longitudinal incision was made at the level of the A1 pully overlying the affected digit. Blunt dissection was made with scissors down to the tendon sheath and the tissues were spread in line with the tendon and neurovascular structures. 3 blunt retractors were placed and the A1 alyssa was identified. The A1 alyssa was cut sharply with a knife from the distal to the proximal edge. A complete release was confirmed with the use of an elevator. Synovitis and thickening of the tendons were seen underneath it. The finger was then flexed and extended without any catching. The wound was irrigated copiously and closed with horizontal mattress sutures. A sterile dressing was applied. Postoperative Protocol: Same day discharge Soft dressing Unlimited finger flexion and extension Remove dressing in 4 days and replace with bandaid No firm gripping for 2 weeks Sutures out at 2 weeks Manual labor at 4 weeks Miguelito Felipe MD Complications: none Post-operative Condition: stable Disposition: PACU
== END 2025-05-31 11:36 | disposition home or self-care (01) ==
LOC: OR 07:55
PROVIDERS: PCP Family Medicine; Referring Provider Orthopaedic Surgery; Visit Provider Orthopaedic Surgery
PROC: (CPT 26055; principal; 2025-05-31 09:15)
DX: M65.351 Trigger finger, right little finger (principal)
CPT/HCPCS: 26055; 82962; J0689; J1100; J2405; J2704; J3010; J7120

== ENCOUNTER → 2025-07-24 10:29 | Outpatient (CLI) | payer MEDICARE, OTHER, SELFPAY ==
[2025-07-24 19:01] LABS: Add Manual Diff / Slide Review NO; Hematocrit 39.6 % (36-46); Hemoglobin 13.6 g/dL (12.0-16.0); Lymphocytes Absolute Auto 1400 /uL (1100-4500); Mean Corpuscular HGB Conc 34.4 % (30-36); Mean Corpuscular Hemoglobin 31.6 PG (26-34); Mean Corpuscular Volume 91.8 fL (80-100); Platelet Count 290 X10^3/uL (150-400)
[2025-07-24 19:07] LABS: Alanine Aminotransferase 16 IU/L (<35); Albumin 4.7 g/dL (3.5-5.0); Albumin Globulin Ratio 1.6 (1.0-2.8); Alkaline Phosphatase 66 U/L (38-126); Blood Urea Nitrogen 16 mg/dL (7-17); Calcium 10.1 mg/dL (8.4-10.2); Carbon Dioxide 30 mmol/L (22-32); Chloride 98 mmol/L (98-107); Cholesterol 176 mg/dL (140-199); Estimated Glomerular Filt Rate > 60 mL/min (>60); Globulin 2.9 g/dL (1.7-4.1); Glucose 130 mg/dL (70-99); HDL Cholesterol 96 mg/dL (40-60); HEMOLYSIS < 15 (0-50); Potassium 4.5 mmol/L (3.4-5.1); Sodium 136 mmol/L (137-145); Total Protein 7.6 g/dL (6.3-8.2); Triglycerides 65 mg/dL (35-150)
[2025-07-24 19:13] LABS: Hemoglobin A1C% w Est Avg Glu 6.3 % (4.0-6.0)
[2025-07-24 19:33] LABS: Free T4, Direct Thyroxine 1.12 ng/dL (0.78-2.19)
[2025-07-24 19:47] LABS: Thyroid Stimulating Hormone 0.487 uIU/mL (0.47-4.68)
== END ==
PROVIDERS: PCP Family Medicine; Referring Provider Family Medicine; Visit Provider Family Medicine
DX: E78.2 Mixed hyperlipidemia (principal); E11.9 Type 2 diabetes mellitus without complications; E78.5 Hyperlipidemia, unspecified; I10 Essential (primary) hypertension; F41.9 Anxiety disorder, unspecified
CPT/HCPCS: 80053; 80061; 83036; 84439; 84443; 85025